=== PATIENT | male | born 2000 | race Caucasian/White ===

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

== ENCOUNTER 2018-05-08 01:14 | Emergency (ER) | payer MEDICAID ==
[2018-05-08 01:14] VITALS: BMI 24.4
[2018-05-08 01:28] VITALS: BP 113/80; PULSE 102; RESP 20; TEMP 98.7; O2SAT 98
--- NOTE | 2018-05-08 01:55 | C.PDOC ---
History Of Present Illness 17 year old male presents to the ED c/o tongue discoloration. Patient reports he recently had dental work done a few days ago. Patient concerned his symptoms might be related. Patient denies fever, chills, facial swelling, tongue swelling, lesions, rash. Time Seen by Provider: 05/08/18 01:37 Chief Complaint (Nursing): Dental Pain History Per: Patient History/Exam Limitations: no limitations Onset/Duration Of Symptoms: Days Current Symptoms Are (Timing): Still Present Recent travel outside of the [place]: No Additional History Per: Patient Past Medical History Reviewed: Historical Data, Nursing Documentation, Vital Signs Vital Signs: Last Vital Signs Temp 98.7 F 05/08/18 01:26 Pulse 102 H 05/08/18 01:26 Resp 20 05/08/18 01:26 BP 113/80 05/08/18 01:26 Pulse Ox 98 05/08/18 01:26 - Medical History PMH: Bipolar Disorder Surgical History: No Surg Hx Family History: States: Unknown Family Hx - Social History Hx Tobacco Use: No Hx Alcohol Use: No Hx Substance Use: No - Immunization History Hx Tetanus Toxoid Vaccination: No Hx Influenza Vaccination: No Hx Pneumococcal Vaccination: No Review Of Systems Constitutional: Negative for: Fever, Chills ENT: Positive for: Other Cardiovascular: Negative for: Chest Pain Respiratory: Negative for: Cough, Shortness of Breath Gastrointestinal: Negative for: Nausea, Vomiting, Abdominal Pain Skin: Negative for: Rash Neurological: Negative for: Weakness, Numbness Physical Exam - Physical Exam Appears: Non-toxic, No Acute Distress Skin: Normal Color, Warm, Dry Head: Atraumatic, Normacephalic Eye(s): bilateral: Normal Inspection Ear(s): Bilateral: Normal Oral Mucosa: Moist, No Drooling, No Other (erythema or swelling) Tongue: No Swelling (greenish/blueish discoloration to the dorsal aspect consistent with food comsumption ), No Lesions, No Bleeding, Other Lips: Normal Appearing, No Swelling, No Lesions Teeth: No Tender To Palpation Gingiva: No Erythema, No Tender Throat: Normal, No Erythema, No Exudate Neck: Normal, Supple Lymphatic: Normal Exam Extremity: Normal ROM Neurological/Psych: Oriented x3, Normal Speech, Normal Cognition Gait: Steady ED Course And Treatment O2 Sat by Pulse Oximetry: 98 (On RA) Pulse Ox Interpretation: Normal Progress Note: Patient was reasurred that discoloration was consistent with food consumption, patient was educated on proper dental hygiene. Disposition Counseled Patient/Family Regarding: Diagnosis, Need For Followup - Disposition Referrals: [facility] [Outside] Disposition: HOME/ ROUTINE Disposition Time: 01:51 Condition: STABLE Additional Instructions: Please follow up with PMD [place] tongue thoroughly at lest 2x daily Return to ER if swelling, redness, ecchymosis or worse Instructions: How to Care for Your Mouth and Teeth Forms: [employer] (Tongan) - Clinical Impression Clinical Impression: Encounter for medical assessment - PA / BACKBREAKER / Resident Statement MD/DO has reviewed & agrees with the documentation as recorded. - Scribe Statement The provider has reviewed the documentation as recorded by the Scribe Khoa Rosales All medical record entries made by the Scribe were at my direction and personally dictated by me. I have reviewed the chart and agree that the record accurately reflects my personal performance of the history, physical exam, medical decision making, and the department course for this patient. I have also personally directed, reviewed, and agree with the discharge instructions and disposition.
== END 2018-05-08 02:13 | disposition home or self-care (01) ==
LOC: C.ER 01:14
DX: Z00.00 Encounter for general adult medical examination without abnormal findings (principal); F31.9 Bipolar disorder, unspecified